=== PATIENT | female | born 1990 | race Caucasian/White ===

== ENCOUNTER 2019-01-06 23:17 | Emergency (ER) | payer OTHER ==
[2019-01-06] MEDS ORDERED: Ibuprofen 200 MG TAB ONE (23:51)
== END 2019-01-07 00:02 | disposition home or self-care (01) ==
LOC: ERS 23:17
DX: M79.10 Myalgia, unspecified site (principal); F32.9 Major depressive disorder, single episode, unspecified; Z79.01 Long term (current) use of anticoagulants
CPT/HCPCS: 99283

== ENCOUNTER 2019-02-21 09:17 | Outpatient (CLI) | payer OTHER ==
[~2019-02-21 09:17] MED LIST: Gadobenate Dimeglumine 529 MG/1 ML (20ML VIAL) ONE
--- NOTE | 2019-02-21 11:49 | MRI ---
Exam: Brain MRI with and without contrast HISTORY: Status post concussion. Bilateral hand arm numbness. Headache.. COMPARISON: None FINDINGS: Gradient echo sequence: No hemorrhage Calvarium: Appropriate T1 marrow signal intensity Midline brain parenchyma: Unremarkable Cerebrum:No parenchymal mass, mass effect or midline shift. Brain volume is age appropriate. Mcdonald-whi te matter differentiation is preserved. Ventricles: No evidence of hydrocephalus. Sinuses and mastoid air cells: Adequate aeration Diffusion: Central arterial flow is maintained. Absent restricted diffusion. Postcontrast images: No pathologic enhancement of the brain parenchyma. IMPRESSION: No acute intracranial process. Unremarkable pre and postcontrast MRI.
== END 2019-02-21 09:18 | disposition home or self-care (01) ==
LOC: SCSMRI 09:17
PROVIDERS: ATTEND Nurse Practitioner Acute Care
DX: G44.309 Post-traumatic headache, unspecified, not intractable (principal)
CPT/HCPCS: 70553; A9577

== ENCOUNTER 2019-04-17 15:08 | Emergency (ER) | payer OTHER ==
[2019-04-17 16:27] LABS: #Basophils 0.1 thou/uL (0.0-0.2); #Eosinphils 0.2 thou/uL (0.0-0.7); #Lymphocytes 3.2 thou/uL (1.20-3.40); #Monocytes 0.6 thou/uL (0.11-0.59); #Neutrophils 4.5 thou/uL (1.40-6.50); %Basophils 1.6 % (0.0-1.0); %Eosinophils 2.6 % (0.0-10.0); %Monocytes 7.1 % (0.0-10.0); %Neutrophils 51.8 % (42.0-75.0); Hemoglobin 15.1 g/dL (12.0-16.0); Mean Corpuscular HGB CONC 35.3 g/dL (32.0-36.0); Mean Corpuscular Hemoglobin 30.8 pg (27.0-31.0); Mean Corpuscular Volume 87.2 fL (78.0-98.0); Mean Platelet Volume 7.5 fL (7.4-10.4); Platelet Count 288 thou/uL (130-400); RBC Distribution Width 11.7 % (11.5-14.5); Red Blood Cell (RBC) Count 4.91 mill/uL (4.20-5.40); White Blood Cell (WBC) Count 8.6 thou/uL (4.8-10.8)
[2019-04-17] MEDS ORDERED: Mag-Al Plus 1200 MG/1200 MG/120 MG/30 ML UDCUP ONE (16:35)
[2019-04-17] MEDS ORDERED: Lidocaine Viscous Sol 2% 15 ml UD Cup ONE (16:35)
--- NOTE | 2019-04-17 16:53 | RAD ---
EXAM: Chest 2 views: HISTORY: Chest pain COMPARISON: 08/25/2014 FINDINGS: There is a normal-sized cardiomediastinal silhouette. There is no evidence of consolidation, mass, or pleural effusion. The bones are unremarkable. IMPRESSION: No evidence of acute cardiopulmonary disease
[2019-04-17 16:59] LABS: ALT (SGPT) 126 U/L (8-55); AST (SGOT) 52 U/L (5-34); Albumin 4.2 g/dL (3.5-5.0); Alkaline Phosphatase 65 U/L (40-150); Anion Gap 15 mmol/L (10-20); BUN (Urea Nitrogen) 9 mg/dL (7.0-18.7); Bilirubin, Total 0.3 mg/dL (0.2-1.2); Calc. Creatinine Clearance 0 mL/min (70-130); Calcium 9.5 mg/dL (7.8-10.44); Carbon Dioxide 24 mmol/L (22-29); Chloride 106 mmol/L (98-107); Estimated GFR-MDRD Greater than 90; Globulin 2.9 g/dL (2.4-3.5); Glucose 114 mg/dL (70-105); Lipase 32 U/L (8-78); Potassium 3.8 mmol/L (3.5-5.1); Protein, Total 7.1 g/dL (6.0-8.3); Sodium 141 mmol/L (136-145)
[2019-04-17] MEDS ORDERED: Ketorolac Tromethamine 30 MG/ML VIAL ONE (17:28)
[2019-04-17] MEDS ORDERED: Famotidine/PF 20 mg/2ml Vial ONE (17:28)
--- NOTE | 2019-04-17 18:41 | ULT ---
EXAM: US Gallbladder RUQ CLINICAL HISTORY: Abdominal pain. Elevated LFTs. COMPARISON: None. FINDINGS: Pancreas: The head of the pancreas has a normal echotexture. The remainder the pancreas is obscured by bowel gas Liver:Increased echogenicity of the hepatic parenchyma which may be due to hepatic steatosis or hepat ocellular disease. Subsequent limited evaluation for hepatic masses and intrahepatic biliary dilatation. The contour of the hepatic margin is maintained. Right hepatic lobe measures 17.3 cm. Portal vein: Patent with appropriate directional flow Gallbladder: Slightly contracted gallbladder. No sonographic evidence of cholelithiasis, gallbladder wall thickening or pericholecystic fluid Eden's sign:Negative Portal vein: Patent. Appropriate directional flow Bile ducts: Common bile duct diameter 0.3 cm Right kidney: No hydronephrosis. Right kidney measures 4.7 x 11.6 x 5.1 cm cm in length. IMPRESSION: Unremarkable exam.
== END 2019-04-17 19:18 | disposition home or self-care (01) ==
LOC: SCSER 15:08
DX: R07.2 Precordial pain (principal); F32.9 Major depressive disorder, single episode, unspecified
CPT/HCPCS: 71046; 76705; 80053; 83690; 84484; 85025; 93005; 96374; 96375; J1885; S0028

== ENCOUNTER 2019-06-28 07:04 | Day surgery (SDC) | payer OTHER ==
[2019-06-27 10:15] VITALS: BMI 37.1
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
[2019-06-28] MEDS ORDERED: Bupivacaine PF 0.5% 30 ML VIAL ONE (08:15)
[2019-06-28] MEDS ORDERED: Midazolam HCl 2 mg/2 ml Vial ONE (08:16)
[2019-06-28] MEDS ORDERED: Fentanyl 100 MCG/2 ML VIAL ONE ×3 (08:16→10:38)
[2019-06-28] MEDS ORDERED: Lidocaine 2% Jelly 5 ML TUBE ONE (08:16)
[2019-06-28] MEDS ORDERED: HYDROmorphone 0.5 MG/0.5 ML SYRINGE ONE (08:16)
[2019-06-28] MEDS ORDERED: Cyclobenzaprine 10 MG TAB ONE (10:23)
[2019-06-28] MEDS ORDERED: ePHEDrine/0.9% NaCl/PF SYRINGE 50 mg/10 ml ONE (10:59)
[2019-06-28] MEDS ORDERED: Lidocaine 1% PF 5 ML VIAL ONE (10:59)
[2019-06-28] MEDS ORDERED: PHENYLEPHRINE-NS 100 MCG/ML 10 ML SYRINGE ONE (10:59)
[2019-06-28] MEDS ORDERED: Rocuronium Bromide 10 MG/ML (10ML VIAL) ONE (10:59)
[2019-06-28] MEDS ORDERED: Dexamethasone 20 MG/5 ML VIAL ONE (10:59)
[2019-06-28] MEDS ORDERED: Ondansetron PF 4 MG/2 ML Vial ONE (10:59)
[2019-06-28] MEDS ORDERED: Glycopyrrolate 0.2 MG/ML 5 ML SYRINGE ONE (10:59)
[2019-06-28] MEDS ORDERED: PROPOFOL 200 MG/20 ML VIAL ONE (10:59)
--- NOTE | 2019-06-28 11:42 | OP ---
DATE OF PROCEDURE: 06/28/2019 DOUBLE CORNER CUTTER: Jake Maxwell PA-C INDICATION: Pain. DIAGNOSIS: Left S1 radiculopathy. PROCEDURE PERFORMED: Left L5 diskectomy. ANESTHESIA: General. DESCRIPTION OF PROCEDURE: The patient was brought into the operating room and placed under general anesthesia. She was flipped from the supine to prone position on the operating room table. A linear incision was planned over the L5-S1 segment. After prepping and draping and after an appropriate perioperative pause, the incision was created. The soft tissues were swept left of midline. A self-retaining retractor was placed in the wound for optimal exposure. After confirming the appropriate level with C-arm fluoroscopy, the laminectomy was performed along the inferior aspect of L5 and the superior aspect of S1. The laminectomy was extended laterally to encompass the medial third of facet joint. The ligament was subsequently removed in the lateral recess. The descending S1 nerve root was identified and mobilized medially, where a protuberant disk mass was identified. An annulotomy was performed in that disk with an 11-blade knife and the disk material was removed until the descending S1 nerve root was decompressed. After decompressing the nerve root, the wound was irrigated. Hemostasis was maintained throughout. The wound was then closed in anatomic layers and a pressure dressing was applied. There were no known procedural complications. Job ID: [id number]
[2019-06-28] MEDS ORDERED: traMADol HCl 50 MG TAB ONE (12:40)
== END 2019-06-28 14:15 | disposition home or self-care (01) ==
LOC: SDC 07:04
PROVIDERS: ATTEND Neurological Surgery
PROC: 0SB20ZZ Excision of Lumbar Vertebral Disc, Open Approach (ICD-10-PCS; principal; 2019-06-28)
DX: M51.16 Intervertebral disc disorders with radiculopathy, lumbar region (principal); G89.4 Chronic pain syndrome; F32.9 Major depressive disorder, single episode, unspecified; E28.2 Polycystic ovarian syndrome; J30.2 Other seasonal allergic rhinitis; Z79.899 Other long term (current) drug therapy; Z88.5 Allergy status to narcotic agent
CPT/HCPCS: 76000; J0690; J1100; J1170; J2001; J2250; J2405; J2704; J3010; S0020

== ENCOUNTER 2020-04-11 12:52 | Outpatient (CLI) | payer OTHER ==
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
== END 2020-04-11 12:53 | disposition home or self-care (01) ==
LOC: SCSMRI 12:52
PROVIDERS: ATTEND Nurse Practitioner Family
DX: M51.16 Intervertebral disc disorders with radiculopathy, lumbar region (principal); M48.061 Spinal stenosis, lumbar region without neurogenic claudication; M46.06 Spinal enthesopathy, lumbar region; R29.890 Loss of height; Q05.7 Lumbar spina bifida without hydrocephalus; M51.27 Other intervertebral disc displacement, lumbosacral region
CPT/HCPCS: 72148

== ENCOUNTER 2020-05-31 09:03 | Outpatient (CLI) | payer OTHER ==
[2020-05-31 15:45] LABS: BHCG - Serum Negative (NEGATIVE); Pregs Control Background? CLEAR/WHITE (CLR/WHITE); Pregs Control Bar Appear? YES (CONTROL BAR)
[2020-06-01 13:39] LABS: SARS-CoV-2 MS2 Positive; SARS-CoV-2 N Gene Negative; SARS-CoV-2 S Gene Negative; SARS-CoV-2 by NAA Not Detected (NotDetected); SARS-CoV-2 orf1ab Negative
== END 2020-05-31 09:04 | disposition home or self-care (01) ==
LOC: LABBT 09:03
PROVIDERS: ATTEND Neurological Surgery
DX: Z01.812 Encounter for preprocedural laboratory examination (principal); M51.16 Intervertebral disc disorders with radiculopathy, lumbar region; Z20.828 Contact with and (suspected) exposure to other viral communicable diseases
CPT/HCPCS: 84703; 87635; U0003

== ENCOUNTER 2020-06-05 05:48 | Day surgery (SDC) | payer OTHER ==
[2020-06-04 12:13] VITALS: BMI 37.9
[2020-06-05] MEDS ORDERED: Fentanyl 100 MCG/2 ML VIAL ONE ×5 (06:19→09:52)
[2020-06-05] MEDS ORDERED: Lidocaine 2% Jelly 5 ML TUBE ONE (06:19)
[2020-06-05] MEDS ORDERED: Midazolam HCl 2 mg/2 ml Vial ONE ×2 (06:19→06:45)
[2020-06-05] MEDS ORDERED: HYDROmorphone 0.5 MG/0.5 ML SYRINGE ONE (06:19)
[2020-06-05] MEDS ORDERED: Bupivacaine PF 0.5% 30 ML VIAL ONE (06:32)
[2020-06-05] MEDS ORDERED: Lidocaine 1% w/Epinephrine 1:100K 20 ML VIAL ONE (06:32)
[2020-06-05] MEDS ORDERED: Thrombin 5000 UNITS/5 ML VIAL ONE (06:32)
[2020-06-05] MEDS ORDERED: EPINEPHrine 1 MG/ML AMP ONE (06:38)
--- NOTE | 2020-06-05 08:33 | OP ---
DATE OF PROCEDURE: 06/05/2020 DOUGHNUT BATTER MIXER: Jake Maxwell PA-C INDICATION: Pain. DIAGNOSIS: Lumbar radiculopathy. PROCEDURE PERFORMED: Reoperation of left L5-S1 decompression diskectomy. ANESTHESIA: General. DESCRIPTION OF PROCEDURE: The patient was brought into the operating room and placed under general anesthesia. She was flipped from the supine to prone position on the operating room table. A linear incision was planned at the L5-S1 segment. After prepping and draping and after an appropriate preoperative pause, the incision was created. Soft tissues were swept left of midline. A C-arm image was obtained to confirm the appropriate location. After placing self-retaining retractors, a bone defect was identified at the L5-S1 segment on the left. The bone defect was extended superiorly as well as laterally to further identify the lateral recess. The descending S1 nerve root was identified and carefully mobilized medially. There was a substantial amount of scar tissue present as well as partially-calcified disk. This was removed using disk punches as well as a Kerrison. After completing the decompression, the descending S1 nerve root was well decompressed. The wound was irrigated. Hemostasis was maintained throughout. The wound was then closed in anatomic layers, and a pressure dressing was applied. There were no known procedural complications. Job ID: [id number]
[2020-06-05] MEDS ORDERED: Promethazine HCl 25 MG/ML VIAL SLOW IVP PRN (08:39)
[2020-06-05] MEDS ORDERED: Ondansetron HCl/PF 4 MG/2 ML Vial IVP PRN (08:39)
[2020-06-05] MEDS ORDERED: Ketorolac Tromethamine 30 MG/ML VIAL IVP PRN (08:39)
[2020-06-05] MEDS ORDERED: Promethazine HCl 25 MG/ML VIAL IM PRN (08:39)
[2020-06-05] MEDS ORDERED: Promethazine HCl 25 MG/ML VIAL ONE (08:54)
[2020-06-05] MEDS ORDERED: Morphine 4 MG/ML VIAL ONE ×2 (09:53→10:17)
[2020-06-05] MEDS ORDERED: PHENYLEPHRINE-NS 100 MCG/ML 10 ML SYRINGE ONE (10:04)
[2020-06-05] MEDS ORDERED: Ondansetron PF 4 MG/2 ML Vial ONE (10:04)
[2020-06-05] MEDS ORDERED: Dexamethasone 20 MG/5 ML VIAL ONE (10:04)
[2020-06-05] MEDS ORDERED: Rocuronium Bromide 10 MG/ML (10ML VIAL) ONE (10:04)
[2020-06-05] MEDS ORDERED: PROPOFOL 200 MG/20 ML VIAL ONE (10:04)
[2020-06-05] MEDS ORDERED: Glycopyrrolate 0.2 MG/ML 5 ML SYRINGE ONE (10:04)
[2020-06-05] MEDS ORDERED: Lidocaine 1% PF 5 ML VIAL ONE (10:04)
[2020-06-05] MEDS ORDERED: HYDROcodone/Acetaminophen 5/325 mg Tablet ONE (12:13)
== END 2020-06-05 13:15 | disposition home or self-care (01) ==
LOC: SDC 05:48
PROVIDERS: ATTEND Neurological Surgery
PROC: 0ST20ZZ Resection of Lumbar Vertebral Disc, Open Approach (ICD-10-PCS; principal; 2020-06-05)
DX: M51.16 Intervertebral disc disorders with radiculopathy, lumbar region (principal); Z88.5 Allergy status to narcotic agent
CPT/HCPCS: 76000; J0171; J0690; J1100; J1170; J2250; J2270; J2405; J2550; J2704; J3010; S0020

== ENCOUNTER 2020-06-25 11:42 | Outpatient (CLI) | payer OTHER ==
--- NOTE | 2020-06-25 12:28 | ULT ---
EXAM: Left lower extremity venous Doppler HISTORY: Left lower extremity pain. FINDINGS: Grayscale, color-flow, Doppler evaluation, spectral analysis of the left lower extremity venous struc tures is performed with 2-D imaging. The left common femoral, superficial femoral, popliteal, posterior tibial, proximal greater saphenous and profunda femoral veins are imaged. There is limited evaluation of the mid and distal femoral veins on grayscale imaging which limits meredith luation for nonocclusive DVT, there is normal flow in these venous structures. There is otherwise normal luminal compressibility, flow, and augmentation in the remaining visualized deep venous struct ures of the left lower extremity. IMPRESSION: Limited evaluation for nonocclusive DVT in the mid and distal left superficial femoral veins given di fficulty in visualization of the veins on grayscale imaging, but normal flow is seen within these venous structures. There is otherwise no evidence of a DVT involving the remaining visualized deep ve nous structures left lower extremity.
== END 2020-06-25 11:43 | disposition home or self-care (01) ==
LOC: BICULT 11:42
PROVIDERS: ATTEND Neurological Surgery
DX: R60.0 Localized edema (principal); M79.662 Pain in left lower leg; I82.412 Acute embolism and thrombosis of left femoral vein

== ENCOUNTER 2025-02-16 07:37 | Outpatient (CLI) | payer BC | END 2025-02-16 07:38 | disposition home or self-care (01) | LOC: BICULT 07:37 | PROVIDERS: ATTEND Internal Medicine Gastroenterology | DX: N20.0 Calculus of kidney (principal); R11.0 Nausea; R10.9 Unspecified abdominal pain; A07.1 Giardiasis [lambliasis]; R93.2 Abnormal findings on diagnostic imaging of liver and biliary tract | CPT/HCPCS: 76705 ==

== ENCOUNTER 2025-03-08 09:13 | Outpatient (CLI) | payer BC | END 2025-03-08 09:14 | disposition home or self-care (01) | LOC: ULT 09:13 | PROVIDERS: ATTEND Family Medicine | DX: R10.84 Generalized abdominal pain (principal); R93.89 Abnormal findings on diagnostic imaging of other specified body structures; K76.0 Fatty (change of) liver, not elsewhere classified | CPT/HCPCS: 76700; 76856 ==

== ENCOUNTER 2025-06-12 12:53 | Outpatient (CLI) | payer BC | END 2025-06-12 12:54 | disposition home or self-care (01) | LOC: BICRAD 12:53 | PROVIDERS: ATTEND Family Medicine | DX: R05.9 Cough, unspecified (principal) | CPT/HCPCS: 71046 ==

== ENCOUNTER 2025-06-14 14:31 | Outpatient (CLI) | payer BC | END 2025-06-14 14:32 | disposition home or self-care (01) | LOC: CT 14:31 | PROVIDERS: ATTEND Family Medicine | DX: J34.89 Other specified disorders of nose and nasal sinuses (principal) ==